=== PATIENT | male | born 1940 | race Caucasian/White ===

== ENCOUNTER 2017-03-03 23:09 | Observation (INO) | payer MEDICARE ==
[2017-03-03] MEDS ORDERED: ASPIRIN 81 MG CHEWABLE TABLET PO ONE (23:16)
[2017-03-03 23:23] LABS: BASO % 0.5 % (0-6); EOS % 3.1 % (0-6); GRAN % 67.2 % (47-80); HEMATOCRIT 42.6 % (42.0-52.0); HEMOGLOBIN 14.4 gm/dl (14.0-18.0); LYMPH % 20.7 % (16-45); MEAN CELL VOLUME 87.3 fl (81-97); MEAN CORPUSCULAR HEMOGLOBIN 29.5 pg (27-33); MEAN CORPUSCULAR HGB CONC 33.8 g/dl (32-36); MEAN PLATELET VOLUME 9.4 fl (7.4-10.4); MONO % 8.5 % (0-9); PLATELET COUNT 229 K/uL (130-400); RED BLOOD COUNT 4.88 M/uL (4.40-5.70); RED CELL DISTRIBUTION WIDTH 12.9 % (11.5-14.5); WHITE BLOOD COUNT W/O DIFF 8.8 K/uL (4.2-12.2)
--- NOTE | 2017-03-03 23:23 | Emergency Department Record ---
History of Present Illness - General Chief Complaint: Chest Pain Stated Complaint: CHEST PAIN Source: Patient Mode of Arrival: Ambulatory Limitations: No limitations - History of Present Illness Initial Comments: 76 yo male presents to ED with a CC of intermittent chest pain symptoms throughout the day. Patient describes his pain symptoms as an "ache" that radiates down the left arm lasting for about 1-2 minutes. Patient denies previous history of chest pain or heart disease, reports history of HTN and asthma. Patient denies fevers, chills, cough, or lower extremity swelling/pain symptoms. Patient denies difficulty in breathing. Patient does report a history of "2 vertebrae in my mid-back that are bad, I think my symptoms may be from my back". MD Complaint: Chest pain Onset/Timin -: Days(s) Pain Location: Substernal Pain Radiation: LUE Severity: Moderate Quality: Aching Consistency: Intermittent Improves With: Nothing Worsens With: Nothing Treatments Prior to Arrival: None - Related Data Home Medications Medication Instructions Recorded Confirmed Last Taken Fluticasone/Salmeterol [Advair 1 puff INH BID 03/04/17 03/04/17 Unknown 250-50 Diskus] Allergies Allergy/AdvReac Type Severity Reaction Status Date / Time "Most blood pressure AdvReac Hypertensio Uncoded 03/03/17 23:17 medications" n Review of Systems Constitutional: Denies: Chills, Fever, Malaise, Night sweats Eyes: Denies: Eye discharge, Eye pain ENT: Denies: Congestion, Ear pain, Epistaxis Respiratory: Denies: Cough, Dyspnea Cardiovascular: Reports: Chest pain. Denies: Dyspnea on exertion Endocrine: Denies: Fatigue, Heat or cold intolerance Gastrointestinal: Denies: Abdominal pain, Nausea, Vomiting Genitourinary: Denies: Incontinence, Retention Musculoskeletal: Reports: Back pain. Denies: Arthralgia, Gout, Joint swelling Skin: Denies: Bruising, Change in color Neurological: Denies: Abnormal gait, Confusion, Headache, Seizure Psychiatric: Denies: Anxiety Hematological/Lymphatic: Denies: Anemia, Blood Clots Physical Exam - General General Appearance: Alert, Oriented x3, Cooperative, Mild distress Limitations: No limitations - Head Head exam: Atraumatic, Normocephalic, Normal inspection Head exam detail: negative: Abrasion, Contusion, Singh's sign, General tenderness, Hematoma, Laceration - Eye Eye exam: Normal appearance. negative: Conjunctival injection, Periorbital swelling, Periorbital tenderness, Scleral icterus - ENT Ear exam: negative: Auricular hematoma, Auricular trauma Nasal Exam: negative: Active bleeding, Discharge, Dried blood, Foreign body Mouth exam: negative: Drooling, Laceration, Muffled voice, Tongue elevation - Neck Neck exam: Normal inspection. negative: Meningismus, Tenderness - Respiratory Respiratory exam: Normal lung sounds bilaterally. negative: Rales, Respiratory distress, Rhonchi, Stridor - Cardiovascular Cardiovascular Exam: Regular rate, Normal rhythm, Normal heart sounds - GI/Abdominal GI/Abdominal exam: Soft. negative: Rebound, Rigid, Tenderness - Rectal Rectal exam: Deferred - exam: Deferred - Extremities Extremities exam: Normal inspection. negative: Calf tenderness, Pedal edema, Tenderness - Back Back exam: Denies: CVA tenderness (R), CVA tenderness (L) - Neurological Neurological exam: Alert, Normal gait, Oriented X3 - Psychiatric Psychiatric exam: Anxious - Skin Skin exam: Normal color. negative: Abrasion Type of lesion: negative: abrasion Course - Reevaluation(s) Reevaluation #1: 03/03/17 23:21 EKG: NSR 97 Normal axis, IVCD No acute ST-T wave changes are present. Reevaluation #2: 03/04/17 00:12 Labs reviewed and are grossly unremarkable for an acute process. CXR: No acute process. Patient was updated on all results, reports that he continues to be pain-free. Will admit for cardiac evaluation at this time. Reevaluation #3: 03/04/17 06:59 Case was discussed with Lisa Marinelli, will accept admission at this time. Medical Decision Making - Lab Data Result diagrams: 03/03/17 23:17 03/03/17 23:17 Disposition Disposition: Admit Clinical Impression: Chest pain Qualifiers: Chest pain type: unspecified Qualified Code(s): R07.9 - Chest pain, unspecified Disposition: Still a Patient at [facility] Decision to Admit: Admit from ER Decision to Admit Date: 03/04/17 Decision to Admit Time: 00:13 Condition: (2) Stable Time of Disposition: 00:13 Quality - Quality Measures Quality Measures: N/A - Blood Pressure Screening View Details: Yes Does Patient Have Any of the Following: Active Dx of HTN Blood Pressure Classification: Hypertensive Reading Systolic Measurement: 199 Diastolic Measurement: 110 Screening for High Blood Pressure: Patient Exclusion, Hx of HTN [G9744]
[2017-03-03 23:34] LABS: ALB/GLOB RATIO 1.4 (1.1-1.8); ALBUMIN 4.3 gm/dL (3.5-5.0); ALKALINE PHOSPHATASE 115 U/L (38-126); ALT/SGPT 64 U/L (21-72); ANION GAP 9.6 (7-16); AST/SGOT 35 U/L (17-59); BILIRUBIN,TOTAL 0.44 mg/dL (0.2-1.3); BLOOD UREA NITROGEN 20 mg/dL (9-20); CARBON DIOXIDE 26.4 mmol/L (22-30); CREATINE PHOSPHOKINASE 553 U/L (55-170); CREATININE 1.1 mg/dL (0.66-1.25); EST GLOMERULAR FILTRATION RATE > 60 ml/min; GLUCOSE,RANDOM 159 mg/dL (70-110); TOTAL PROTEIN 7.3 gm/dL (6.3-8.2)
[2017-03-03 23:46] LABS: CKMB 5.6 ug/L (0-6); TROPONIN I 0.013 ng/mL (0.00-0.034)
[2017-03-04] MEDS ORDERED: NITROGLYCERIN 0.4MG SL TABLET #25 BTL SL PRN (00:56)
[2017-03-04] MEDS ORDERED: ALBUTEROL INH PRN (09:11)
[2017-03-04] MEDS ORDERED: ASPIRIN 325 MG TAB ENTERIC-COATED PO SCH (10:00)
[2017-03-04] MEDS ORDERED: TRIAMTERENE 37.5/HCTZ 25 CAPSULE PO SCH (10:00)
[2017-03-04] MEDS ORDERED: PATIENT OWN MED: ADVAIR 250/50 INH SCH (10:10)
--- NOTE | 2017-03-04 10:12 | History & Physical ---
History of Present Illness - Date of Service Date of Service for History & Physical: 03/04/17 - History of Present Illness Admitting Diagnosis: Chest pain. HTN History of Present Illness: Mr. Mclaughlin is a 76 y/o male who presents with acute onset, sharp left sided chest pain which began yesterday evening around 9pm. The patient says the pain is intermittent, lasting about 1 minute, 5/10 in severity and non-radiating. He has no previous cardiac complaint but does admit to severe anxiety for which he takes Ativan PRN. On arrival to the ED the patient's ECG and cardiac labs were not suggestive of any acute coronary syndromes. The patient was admitted for observation on telemetry. Travel Screening - Travel/Exposure Within Last 30 Days Have you traveled within the last 30 days?: No - Travel/Exposure Within Last Year Have you traveled outside the [place] in the last year?: No - Additonal Travel Details Have you been exposed to anyone with a communicable illness?: No - Travel Symptoms Symptom Screening: None Review of Systems Constitutional: Denies: Chills, Fever, Malaise, Night sweats Eyes: Denies: Eye discharge, Eye pain ENT: Denies: Congestion, Ear pain, Epistaxis Respiratory: Denies: Cough, Dyspnea Cardiovascular: Reports: Chest pain (intermittent sharp, point tenderness). Denies: Dyspnea on exertion Endocrine: Denies: Fatigue, Heat or cold intolerance Gastrointestinal: Denies: Abdominal pain, Nausea, Vomiting Genitourinary: Denies: Incontinence, Retention Musculoskeletal: Reports: Back pain. Denies: Arthralgia, Gout, Joint swelling Skin: Denies: Bruising, Change in color Neurological: Denies: Abnormal gait, Confusion, Headache, Seizure Psychiatric: Denies: Anxiety Hematological/Lymphatic: Denies: Anemia, Blood Clots Past Medical History - SOCIAL HISTORY Smoking Status: Never smoker Alcohol Use: Rare Drug Use: None - RESPIRATORY Hx Respiratory Disorders: Yes Hx Asthma: Yes - CARDIOVASCULAR Hx Cardio Disorders: Yes Hx Abnormal EKG: No Hx Hypertension: Yes - NEURO Hx Neuro Disorders: No - GI Hx GI Disorders: No - Hx Genitourinary Disorders: No - ENDOCRINE Hx Endocrine Disorders: No - MUSCULOSKELETAL Hx Musculoskeletal Disorders: No - PSYCH Hx Psych Problems: Yes Hx Anxiety: Yes - HEMATOLOGY/ONCOLOGY Hx Hematology/Oncology Disorders: No Family Medical History Any Significant Family History?: Yes Hx Diabetes: Mother Hx Heart Disease: Father Hx HTN: Father H&P Meds/Allergies - Allergies Allergies: Allergies Allergy/AdvReac Type Severity Reaction Status Date / Time "Most blood pressure AdvReac Hypertensio Uncoded 03/03/17 23:17 medications" n - Home Medications Home Medications Medication Instructions Recorded Confirmed Last Taken Fluticasone/Salmeterol [Advair 1 puff INH BID 03/04/17 03/04/17 Unknown 250-50 Diskus] Lorazepam [Ativan] 0.5 mg PO DAILY PRN 03/04/17 03/04/17 Unknown - Active Medications Active Medications: Current Medications Aspirin (Ecotrin (Ec)) 325 mg PO DAILY [facility] Last Admin: 03/04/17 09:14 Dose: 325 mg Nitroglycerin (Nitrostat 0.4mg) 0.4 mg SL Q5MIN PRN PRN Reason: CHEST PAIN Patient Own Med: (Advair 250/50) 1 each INH BID [facility] Patient Own Med: (Albuterol Inhaler) 2 each INH Q4H PRN PRN Reason: WHEEZING Triamterene/HCTZ (Dyazide) 1 udcap PO DAILY [facility] Last Admin: 03/04/17 09:14 Dose: 1 udcap Physical Exam - Vital Signs Vital Signs: Vital Signs - Last 24 Hrs Temp Pulse Resp BP Pulse Ox 03/04/17 01:06 98.2 F 81 20 150/99 95 - General General Appearance: Alert, Oriented x3, Cooperative, Mild distress Limitations: No limitations - Head Head exam: Atraumatic, Normocephalic, Normal inspection Head exam detail: negative: Abrasion, Contusion, Singh's sign, General tenderness, Hematoma, Laceration - Eye Eye exam: Normal appearance. negative: Conjunctival injection, Periorbital swelling, Periorbital tenderness, Scleral icterus - ENT Ear exam: negative: Auricular hematoma, Auricular trauma Nasal Exam: negative: Active bleeding, Discharge, Dried blood, Foreign body Mouth exam: negative: Drooling, Laceration, Muffled voice, Tongue elevation - Neck Neck exam: Normal inspection. negative: Meningismus, Tenderness - Respiratory Respiratory exam: Normal lung sounds bilaterally. negative: Rales, Respiratory distress, Rhonchi, Stridor - Cardiovascular Cardiovascular Exam: Regular rate, Normal rhythm, Normal heart sounds - GI/Abdominal GI/Abdominal exam: Soft. negative: Rebound, Rigid, Tenderness - Rectal Rectal exam: Deferred - exam: Deferred - Extremities Extremities exam: Normal inspection. negative: Calf tenderness, Pedal edema, Tenderness - Back Back exam: Denies: CVA tenderness (R), CVA tenderness (L) - Neurological Neurological exam: Alert, Normal gait, Oriented X3 - Psychiatric Psychiatric exam: Anxious - Skin Skin exam: Normal color. negative: Abrasion Type of lesion: negative: abrasion Results - Labs Result Diagrams: 03/03/17 23:17 03/03/17 23:17 Labs Last 24 Hours: Laboratory Results - last 24 hr 03/04/17 07:08 Troponin I 0.025 VTE H&P Assessment - Risk for VTE Risk for VTE: No Risk Level: Very Low Risk Assessment Date: 03/04/17 Risk Assessment Time: 10:00 VTE Orders Placed or Will Be Placed: Yes Plan - Detailed Diagnosis and Plan (1) Atypical chest pain Plan: - patient presents with intermittent chest pain which has now resolved. Symptoms likely induced by anxiety. - ECG negative for any acute changes, troponins negative x 2, telemetry monitoring - nitro 0.4mg, ASA administered in the ED, ordered Ativan 0.5mg - Cardiology evaluated and not further indication for workup. Status: Acute Base Code: R07.89 - OTHER CHEST PAIN (2) HTN (hypertension) Plan: - currently controlled on home dsoing of HCTZ/Triameterne. Status: Acute Base Code: I10 - ESSENTIAL (PRIMARY) HYPERTENSION (3) Anxiety Plan: - patient has hx of anxiety and takes Ativan at home but is unsure of the dose. - ordered PRN Ativan 0.5mg. Status: Acute Base Code: F41.9 - ANXIETY DISORDER, UNSPECIFIED (4) Full code status Status: Acute Base Code: Z78.9 - OTHER SPECIFIED HEALTH STATUS - Disposition Will likely be d/c this afternoon pending Cardiology input. Patient to follow up with PCP within one week at discharge.
[2017-03-04] MEDS ORDERED: LORAZEPAM 0.5 MG TABLET PO ONE (11:38)
--- NOTE | 2017-03-04 16:42 | RADIOLOGY REPORT ---
EXAM: CHEST AP or PA ONLY HISTORY: CHEST PAIN. TECHNIQUE: A single mobile upright view of the chest is obtained. COMPARISON: Two-view chest radiographic examination dated 09/19/2012. FINDINGS: The heart remains normal in size and the pulmonary vasculature is nondilated. The lung volumes are low. There is scalloping of the right hemidiaphragm, not significantly changed. No new lung consolidation, costophrenic angle blunting, or pneumothorax is seen. Degenerative endplate spurring is scattered within the visualized spine. IMPRESSION: LOW LUNG VOLUMES. NO CONVINCING EVIDENCE OF ACUTE CARDIOPULMONARY DISEASE. JOB NUMBER: [id number] MTDD
--- NOTE | 2017-03-04 20:36 | Discharge Summary ---
Providers Discharge Summary Date: 03/04/17 Date of admission: 03/04/17 00:39 Attending physician: BULMARO MOLINA Primary care physician: Lavonne Vieira Consults: Consult Orders 03/04/17 06:45 Consult - Cardiology NOW Consulting Provider: NIKOLAI SAHU Physician Instructions: Reason For Exam: chest pain Does pt have current elementary reading specialist?: Unknown Physical Exam - Vital Signs Vital Signs: Vital Signs - Last 24 Hrs Temp Pulse Resp BP Pulse Ox 03/04/17 11:00 98.7 F 93 H 20 145/89 96 03/04/17 09:00 20 03/04/17 01:06 98.2 F 81 20 150/99 95 - General General Appearance: Alert, Oriented x3, Cooperative, Mild distress Limitations: No limitations - Head Head exam: Atraumatic, Normocephalic, Normal inspection Head exam detail: negative: Abrasion, Contusion, Singh's sign, General tenderness, Hematoma, Laceration - Eye Eye exam: Normal appearance. negative: Conjunctival injection, Periorbital swelling, Periorbital tenderness, Scleral icterus - ENT Ear exam: negative: Auricular hematoma, Auricular trauma Nasal Exam: negative: Active bleeding, Discharge, Dried blood, Foreign body Mouth exam: negative: Drooling, Laceration, Muffled voice, Tongue elevation - Neck Neck exam: Normal inspection. negative: Meningismus, Tenderness - Respiratory Respiratory exam: Normal lung sounds bilaterally. negative: Rales, Respiratory distress, Rhonchi, Stridor - Cardiovascular Cardiovascular Exam: Regular rate, Normal rhythm, Normal heart sounds - GI/Abdominal GI/Abdominal exam: Soft. negative: Rebound, Rigid, Tenderness - Rectal Rectal exam: Deferred - exam: Deferred - Extremities Extremities exam: Normal inspection. negative: Calf tenderness, Pedal edema, Tenderness - Back Back exam: Denies: CVA tenderness (R), CVA tenderness (L) - Neurological Neurological exam: Alert, Normal gait, Oriented X3 - Psychiatric Psychiatric exam: Anxious - Skin Skin exam: Normal color. negative: Abrasion Type of lesion: negative: abrasion Hospitalization - Hospitalization Admission Diagnosis: Chest pain. HTN - Problem List/Discharge Diagnosis (1) Atypical chest pain Status: Acute Base Code: R07.89 - OTHER CHEST PAIN Diagnosis Priority: Primary (2) HTN (hypertension) Status: Chronic Base Code: I10 - ESSENTIAL (PRIMARY) HYPERTENSION Diagnosis Priority: Secondary (3) Anxiety Status: Acute Base Code: F41.9 - ANXIETY DISORDER, UNSPECIFIED Diagnosis Priority: Secondary (4) Full code status Status: Acute Base Code: Z78.9 - OTHER SPECIFIED HEALTH STATUS Diagnosis Priority: Other - Disposition Will likely be d/c this afternoon pending Cardiology input. Patient to follow up with PCP within one week at discharge. - Hospitalization Course Disposition: Home, Self-Care Hospital Course: Mr. Mclaughlin is 76 y/o male who presents with intermittent chest pain starting last night. The patient presented to the ED with acute intermittent chest pain. HE was adminstered Nitro 0.4mg, ECG and troponins were negative for acute coronary syndrome. The patient was started on telemetry and throughout his hospital stay there was no indication of arrythmia and trended labs remained negative. Cardiology evaluated the patient and saw no need for further cardiac evaluation. The patient exhibited extreme anxiety during his stay and was responsive to Ativan 0.5 mg. He had no other complaints during his stay and symptoms resolved. Condition at Discharge: (2) Stable Discharge Diagnosis: Atypical chest pain VTE Discharge VTE Reason For No Overlap Therapy: Not Indicated AMI Discharge Plan AMI Reason For No ASA at DC: Not Indicated AMI Reason For No Statin at DC: Not Indicated Discharge Medications - Discharge Medications Home Medications: Ambulatory Orders Albuterol Sulfate [Proair Hfa] 1 - 2 puff INH Q4HR PRN #25 07/10/16 [Last Taken Unknown] Triamterene/Hydrochlorothiazid [Triamterene-Hctz 37.5-25 Mg Cp] 1 tab PO DAILY # 90 07/10/16 [Last Taken Unknown] Fluticasone/Salmeterol [Advair 250-50 Diskus] 1 puff INH BID 03/04/17 [Last Taken Unknown] Lorazepam [Ativan] 0.5 mg PO DAILY PRN 03/04/17 [Last Taken Unknown] Discharge Plan - Discharge Instructions Activity at Discharge: Resume Usual Activities As Tolerated Instructions: Chest Pain (DC) Additional Instructions: Follow up with with Dr. Vieira in one week. Quality Measures - Quality Measures Quality Measures: Advance Directives, Documentation of Current Medications in Medical Record, Elder Maltreatment Screen and Follow-Up Plan, Screening for High Blood Pressure and F/U Documented - Current Medications Quality Measure: Measure #130: Documentation of Current Medications Documentation of Current Medications: <Current Medications Documented/Reviewed> [G6358] - Blood Pressure Screening Quality Measure: Screening for High Blood Pressure and Follow-Up Documented Does Patient Have Any of the Following: Active Dx of HTN Blood Pressure Classification: Hypertensive Reading Systolic Measurement: 199 Diastolic Measurement: 110 Screening for High Blood Pressure: Patient Exclusion, Hx of HTN [G9744] - Advance Directives Quality Measure: Measure #47: Care Plan Advance Directives Established: No Advance Directives Information Provided To Patient: No Advance Directives on File: No Living Will: Yes Power of Receiving Distribution Station Operator: Yes Power of Receiving Distribution Station Operator Name: Ayala Mclaughlin Advance Care Planning: <Care Plan/Decision Maker Documented; Discussed & Documented> [1123F] - Elder Abuse Suspicion Index Screening: Elder Abuse Suspicion Index Screening Screening Result: Negative result EASI Reference Information: Jenny TAMAYO, Kevin C, Didier D, Jennie Olsen.Development and validation of a tool to assist physicians identification of elder abuse: The Elder Abuse Suspicion Index (EASI ). Journal of Elder Abuse and Neglect, 2008; 20 (3): 276-300. - Elder Maltreatment Screen Quality Measures: Elder Maltreatment Screen and Follow-Up Plan Elder Maltreatment Screen: <Negative, No Follow-Up Plan Required> [G8734]
--- NOTE | 2017-03-04 20:57 | Medical Records Consult ---
DATE OF CONSULT: 03/04/17 Azam Mclaughlin is a 76-year-old male that states that he suffers from anxiety. He is very concerned about his heart. He did complain of intermittent sharp, jabbing chest discomfort that occurred throughout the day. The pain was not typical of angina, had none of the typical features of a visceral sensation that lasted for 15 or 20 minutes, initiated with postings and increased cardiac output. The patient since being in the hospital has had none of this chest discomfort. His resting electrocardiogram was completely normal. His initial troponin was also normal at 0.025. Serum electrolytes reveal some mild low serum potassium at 3.6. FURTHER HISTORY: Further history was done by the Primary Service. These were carefully reviewed and confirmed with the patient as well as the . No additions are necessary. PHYSICAL EXAMINATION: GENERAL: Reveals an elderly apprehensive male who was resting comfortably in bed at the time of this evaluation. LUNGS: His lungs were clear to auscultation in all listening posts. CARDIAC EXAM: The heart sounds are clear. First and second sounds are normal. No S3. No S4. I did not hear any murmurs. ABDOMEN: His abdomen was soft without masses. Good peripheral pulses. No evidence of peripheral edema. IMPRESSION: THE PATIENTS CHEST DISCOMFORT IS ATYPICAL FOR CORONARY DISEASE. RESTING ELECTROCARDIOGRAM AND TROPONIN AT THIS POINT ARE NORMAL. I DID NOT FEEL TREADMILL EXERCISE TESTING WOULD ADD ANYTHING TO THE CASE. IF ALL TROPONINS ARE NORMAL EXPECTED, THE PATIENT CAN BE DISCHARGED AND FOLLOWED-UP BY HIS PRIMARY CARE PHYSICIAN. JOB NUMBER: [id number] MTDD
== END 2017-03-04 16:30 | disposition home or self-care (01) ==
LOC: ER 23:09 → MEDSURG 03-04 00:39
PROVIDERS: ADMIT Family Medicine; ATTEND Family Medicine
DX: R07.89 Other chest pain (principal); I10 Essential (primary) hypertension; F41.9 Anxiety disorder, unspecified; Z78.9 Other specified health status
CPT/HCPCS: 93041; 99285 ×2; 82550; 85025; 82553; 84484 ×2; 80053; 71010; 93005 ×2; 93010 ×2; G0378; 99235

== ENCOUNTER 2017-12-26 15:30 | Emergency (ER) | payer MEDICARE ==
[2017-12-26] MEDS ORDERED: AMPICILLIN SODIUM/SULBACTAM NA 3 G in 0.9 % SODIUM CHLORIDE 100ML 100 ML IVPB ONE (15:50)
[2017-12-26] MEDS ORDERED: Diph,Pert(Acell),Tet Vac 0.5 ML SYR IM ONE (15:51)
--- NOTE | 2017-12-26 15:51 | Emergency Department Record ---
History of Present Illness - General Chief Complaint: Animal Bite Stated Complaint: CAT BITE ON LEFT WRIST Time Seen by Provider: 12/26/17 15:45 Source: Patient, Family Mode of Arrival: Ambulatory Limitations: No limitations - History of Present Illness Initial Comments: 77 yo male presents after a cat bite yesterday to the left wrist. The bite occurred at 8am yesterday. The redness started today. No fevers, chills, pain , pain with motion. His last tetanus shot was in 2011. He has not limitation of wrist or finger movement. Movement of the wrist and fingers do not cause pain. The cat is his cat. It is a healthy animal. Complaint: Animal bite Onset/Timin -: Days(s) Location - General: Other Left: Forearm Animal: Cat Description: Household pet Mechanism: Bite Context: Other Associated Symptoms: None, Fever Treatments Prior to Arrival: Other (clean it yesterday) - Related Data Home Medications Medication Instructions Recorded Confirmed Last Taken Aspirin 325 mg PO DAILY 12/26/17 12/26/17 12/26/17 Previous Rx's Medication Instructions Recorded Amoxicillin/Potassium Clav 1 tab PO BID #20 tab 12/26/17 [Augmentin 875-125 Tablet] Allergies Allergy/AdvReac Type Severity Reaction Status Date / Time "Most blood pressure AdvReac Hypertensio Uncoded 03/03/17 23:17 medications" n Travel Screening - Travel/Exposure Within Last 30 Days Have you traveled within the last 30 days?: No - Travel/Exposure Within Last Year Have you traveled outside the [place] in the last year?: No - Additonal Travel Details Have you been exposed to anyone with a communicable illness?: No - Travel Symptoms Symptom Screening: None Review of Systems Constitutional: Denies: Chills, Fever, Malaise, Weakness Eyes: Denies: Eye discharge ENT: Denies: Congestion, Throat pain Respiratory: Denies: Cough Cardiovascular: Denies: Chest pain, Syncope Endocrine: Denies: Fatigue Gastrointestinal: Denies: Abdominal pain, Diarrhea, Nausea, Vomiting Genitourinary: Denies: Dysuria Musculoskeletal: Denies: Arthralgia, Myalgia Skin: Reports: As per HPI, Change in color Neurological: Denies: Numbness, Tingling, Vertigo, Weakness Psychiatric: Denies: Anxiety Hematological/Lymphatic: Denies: Blood Clots, Easy bleeding, Easy bruising Past Medical History - SOCIAL HISTORY Smoking Status: Never smoker Alcohol Use: Occasional Drug Use: None - RESPIRATORY Hx Respiratory Disorders: Yes Hx Asthma: Yes - CARDIOVASCULAR Hx Cardio Disorders: Yes Hx Abnormal EKG: No Hx Hypertension: Yes - NEURO Hx Neuro Disorders: No - GI Hx GI Disorders: No - Hx Genitourinary Disorders: No - ENDOCRINE Hx Endocrine Disorders: No - MUSCULOSKELETAL Hx Musculoskeletal Disorders: No - PSYCH Hx Psych Problems: Yes Hx Anxiety: Yes - HEMATOLOGY/ONCOLOGY Hx Hematology/Oncology Disorders: No Family Medical History Any Significant Family History?: Yes Hx Diabetes: Mother Hx Heart Disease: Father Hx HTN: Father Hx Stroke: Mother *Stroke Comment: from stroke Physical Exam - General General Appearance: Alert, Oriented x3, Cooperative, No acute distress Limitations: No limitations - Head Head exam: Atraumatic, Normal inspection - Eye Eye exam: Normal appearance. negative: Conjunctival injection - ENT ENT exam: Normal exam, Mucous membranes moist Ear exam: Normal external inspection Nasal Exam: Normal inspection - Neck Neck exam: Normal inspection - Cardiovascular Peripheral Pulses: 2+: Radial (L) - Extremities Extremities exam: Full ROM, Normal capillary refill. negative: Normal inspection, Tenderness Image of Full Body: 1 - site of bite, no pus or fluctuance, 4 puncture sites from yesterday 2 - erythema. full ROM of the wrist, fingers. NO pain on palpation or with the ROM. No signs of deep infection of tendon involvement - Neurological Neurological exam: Alert, Oriented X3 - Psychiatric Psychiatric exam: Normal affect, Normal mood - Skin Skin exam: Dry, Intact, Normal color, Warm Course Vital Signs 12/26/17 15:38 Temperature 99.1 F Pulse Rate 89 Respiratory 20 Rate Blood Pressure 163/97 Pulse Ox 95 - Reevaluation(s) Reevaluation #1: The tetanus will be updated today His findings are mild at this time No signs of deep inflection, tenosynovitis, abscess. No pain or pain with ROM IV Unasyn ordered 12/26/17 15:54 12/26/17 16:28 The XR was reviewed No acute process. Degenerative changes 12/26/17 16:30 The area was marked for further monitoring We discussed at length the importance of returning if worse He will recheck in the ED if not better in 2 days otherwise but sooner if worse 12/26/17 17:13 Disposition Disposition: Discharge Clinical Impression: Cat bite Qualifiers: Encounter type: initial encounter Qualified Code(s): W55.01XA - Bitten by cat, initial encounter Cellulitis Qualifiers: Site of cellulitis: extremity Site of cellulitis of extremity: upper extremity Laterality: left Qualified Code(s): L03.114 - Cellulitis of left upper limb Disposition: Home, Self-Care Condition: (1) Good Instructions: Animal Bite (ED), Cellulitis (ED) Additional Instructions: Return to the ER if the area of redness expands beyond the marked area Return to the ER immediately if you have fever, chills, shakes or any new concerns Take the Augmentin twice daily as directed Recheck in the ER in 48 if no improvement. Prescriptions: Amoxicillin/Potassium Clav [Augmentin 875-125 Tablet] 1 tab PO BID #20 tab Forms: Patient Portal Access Time of Disposition: 16:05 Quality - Quality Measures Quality Measures: N/A - Blood Pressure Screening Does Patient Have Any of the Following: Active Dx of HTN Blood Pressure Classification: Hypertensive Reading Systolic Measurement: 163 Diastolic Measurement: 97 Screening for High Blood Pressure: Patient Exclusion, Hx of HTN [G9744]
[2017-12-26] MEDS ORDERED: AMOXICILLIN/POTASSIUM CLAV 875MG/125MG TABLET PO ONE (17:13)
--- NOTE | 2017-12-28 19:22 | RADIOLOGY REPORT ---
EXAM: WRIST, LEFT 3 VIEWS HISTORY: REDNESS AND SWELLING FROM CAT BITE YESTERDAY. TECHNIQUE: Three views left wrist. COMPARISON: None. ENCOUNTER: Initial. FINDINGS: There is advanced degenerative arthritis at the first CMC articulation with some deformity of the greater multangular, which appears chronic in nature and may be due to old injury. There is degenerative arthritis at the radiocarpal and ulnocarpal joints as well. Soft tissue swelling fairly diffusely about the wrist. Some vascular calcification is present. No definite acute fracture or dislocation evident. No obvious foreign body seen, although some foreign bodies will be radiographically indistinguishable from the soft tissues. IMPRESSION: 1. 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 2. DIFFUSE SOFT TISSUE SWELLING. 3. SOME VASCULAR CALCIFICATION. JOB NUMBER: [id number] [facility]
== END 2017-12-26 17:59 | disposition home or self-care (01) ==
LOC: ER 15:30
DX: S61.532A Puncture wound without foreign body of left wrist, initial encounter (principal); L03.114 Cellulitis of left upper limb; W55.01XA Bitten by cat, initial encounter; Y92.009 Unspecified place in unspecified non-institutional (private) residence as the place of occurrence of the external cause; I10 Essential (primary) hypertension
CPT/HCPCS: 99284 ×2; 96372; 96365; 73110; J0295; 90715

== ENCOUNTER 2017-12-28 20:19 | Emergency (ER) | payer MEDICARE ==
[2017-12-28] MEDS ORDERED: AMPICILLIN SODIUM/SULBACTAM NA 3 G in 0.9 % SODIUM CHLORIDE 100ML 100 ML IVPB ONE (20:39)
--- NOTE | 2017-12-28 20:45 | Emergency Department Record ---
History of Present Illness - General Chief Complaint: Wound, check Stated Complaint: RECHECK Time Seen by Provider: 12/28/17 20:21 Source: Patient Mode of arrival: Ambulatory Limitations: No limitations - History of Present Illness Initial Comments: 77 yo male returns to ED for re-evaluation following a cat bite to the left wrist 2 days ago. Patient report that he has been taking Augmentin as directed and his symptoms have overall improved. Patient reports less pain symptoms and fading of the redness to the forearm, however came to ED as the redness has expanded slightly beyond the previously demarcated area of the forearm/elbow. Patient denies fevers, chills, nausea, or recent illness symptoms. MD Complaint: Wound re-check Onset/Timin -: Days(s) Initial Visit For: Animal bite Returns Today for: Wound recheck Symptoms Since Prior Visit: Worsening redness Associated Symptoms: None - Related Data Previous Rx's Medication Instructions Recorded Amoxicillin/Potassium Clav 1 tab PO BID #20 tab 12/26/17 [Augmentin 875-125 Tablet] Allergies Allergy/AdvReac Type Severity Reaction Status Date / Time "Most blood pressure AdvReac Hypertensio Uncoded 03/03/17 23:17 medications" n Travel Screening - Travel/Exposure Within Last 30 Days Have you traveled within the last 30 days?: No - Travel Symptoms Symptom Screening: None Review of Systems Constitutional: Denies: Chills, Fever, Malaise, Night sweats Eyes: Denies: Eye discharge, Eye pain ENT: Denies: Congestion, Ear pain, Epistaxis Respiratory: Denies: Cough, Dyspnea Cardiovascular: Denies: Chest pain, Dyspnea on exertion Endocrine: Denies: Fatigue, Heat or cold intolerance Gastrointestinal: Denies: Abdominal pain, Nausea, Vomiting Genitourinary: Denies: Incontinence, Retention Musculoskeletal: Denies: Arthralgia, Back pain Skin: Reports: Change in color. Denies: Bruising, Lesions Neurological: Denies: Abnormal gait, Confusion, Headache, Seizure Psychiatric: Denies: Anxiety Hematological/Lymphatic: Denies: Anemia, Blood Clots Past Medical History - SOCIAL HISTORY Smoking Status: Never smoker - RESPIRATORY Hx Respiratory Disorders: Yes Hx Asthma: Yes - CARDIOVASCULAR Hx Cardio Disorders: Yes Hx Abnormal EKG: No Hx Hypertension: Yes - NEURO Hx Neuro Disorders: No - GI Hx GI Disorders: No - Hx Genitourinary Disorders: No - ENDOCRINE Hx Endocrine Disorders: No - MUSCULOSKELETAL Hx Musculoskeletal Disorders: No - PSYCH Hx Psych Problems: Yes Hx Anxiety: Yes - HEMATOLOGY/ONCOLOGY Hx Hematology/Oncology Disorders: No Family Medical History Any Significant Family History?: Yes Hx Diabetes: Mother Hx Heart Disease: Father Hx HTN: Father Hx Stroke: Mother *Stroke Comment: from stroke Physical Exam - General General Appearance: Alert, Oriented x3, Cooperative Limitations: No limitations - Head Head exam: Atraumatic, Normocephalic, Normal inspection Head exam detail: negative: Abrasion, Contusion, Singh's sign, General tenderness, Hematoma, Laceration - Eye Eye exam: Normal appearance. negative: Conjunctival injection, Periorbital swelling, Periorbital tenderness, Scleral icterus - ENT Ear exam: negative: Auricular hematoma, Auricular trauma Nasal Exam: negative: Active bleeding, Discharge, Dried blood, Foreign body Mouth exam: negative: Drooling, Laceration, Muffled voice, Tongue elevation Teeth exam: Dental caries - Neck Neck exam: Normal inspection. negative: Meningismus, Tenderness - Respiratory Respiratory exam: Normal lung sounds bilaterally. negative: Rales, Respiratory distress, Rhonchi - Cardiovascular Cardiovascular Exam: Regular rate, Normal rhythm, Normal heart sounds - GI/Abdominal GI/Abdominal exam: Soft. negative: Rebound, Rigid, Tenderness - Rectal Rectal exam: Deferred - exam: Deferred - Extremities Extremities exam: Tenderness, Other (Mild STS to the volar aspect of the left forearm, scabbed lesions to the left wrist c/w healing bite wounds. Mild erythema and warmth to palpation is present, mild erythema beyond the previously demarcated region of the elbow proximally.). negative: Calf tenderness, Pedal edema - Back Back exam: Denies: CVA tenderness (R), CVA tenderness (L) - Neurological Neurological exam: Alert, Normal gait, Oriented X3 - Psychiatric Psychiatric exam: Normal affect, Normal mood - Skin Skin exam: Erythema. negative: Abrasion Distribution of rash: LUE Description of rash: Confluent, Erythematous Course Vital Signs 12/28/17 20:26 Temperature 98.3 F Pulse Rate 114 H Respiratory 18 Rate Blood Pressure 160/86 Pulse Ox 95 - Reevaluation(s) Reevaluation #1: 12/28/17 21:37 Laboratory studies were reviewed, Glucose 252, CRP 7.7, ESR 73. Labs are otherwise grossly unremarkable for an acute process. Patient was updated on all results, appears stable for discharge with return in 12-24 hours for reassessment of his forearm infection, if worse on return visit , will plan on admission. Patient and his verbalize understanding of all instructions, and the patient appears stable for discharge at this time. Medical Decision Making - Lab Data Result diagrams: 12/28/17 20:50 12/28/17 20:50 Disposition Disposition: Discharge Clinical Impression: Cat bite Qualifiers: Encounter type: subsequent encounter Qualified Code(s): W55.01XD - Bitten by cat, subsequent encounter Cellulitis Qualifiers: Site of cellulitis: extremity Site of cellulitis of extremity: upper extremity Laterality: left Qualified Code(s): L03.114 - Cellulitis of left upper limb Disposition: Home, Self-Care Condition: (2) Stable Instructions: Animal Bite (ED) Additional Instructions: Return to ED in 12-24 hours for reassessment of your forearm infection. Continue Augmentin as directed. Follow-up with your family doctor in 1-3 days as directed. Forms: Patient Portal Access Time of Disposition: 21:46 Quality - Quality Measures Quality Measures: N/A - Blood Pressure Screening Does Patient Have Any of the Following: No Blood Pressure Classification: Pre-Hypertensive BP Reading Systolic Measurement: 135 Diastolic Measurement: 74 Screening for High Blood Pressure: < Pre-Hypertensive BP, F/U Documented > [ G8950] Pre-Hypertensive Follow-up Interventions: Referral to alternative/primary care provider.
[2017-12-28 21:11] LABS: BASO % 0.6 % (0-6); EOS % 3.1 % (0-6); GRAN % 74.9 % (47-80); HEMATOCRIT 41.1 % (42.0-52.0); HEMOGLOBIN 13.6 gm/dl (14.0-18.0); LYMPH % 12.7 % (16-45); MEAN CELL VOLUME 87.4 fl (81-97); MEAN CORPUSCULAR HEMOGLOBIN 28.9 pg (27-33); MEAN CORPUSCULAR HGB CONC 33.1 g/dl (32-36); MEAN PLATELET VOLUME 10.7 fl (7.4-10.4); MONO % 8.7 % (0-9); PLATELET COUNT 254 K/uL (130-400)
[2017-12-28 21:24] LABS: BLOOD UREA NITROGEN 30 mg/dL (8-23); EST GLOMERULAR FILTRATION RATE > 60 mL/min; TOTAL PROTEIN 7.2 g/dL (6.6-8.7)
[2017-12-28 21:26] LABS: GLUCOSE,RANDOM 252 mg/dL (74-109)
[2017-12-28 21:29] LABS: ALB/GLOB RATIO 1.1 (1.1-1.8); ALBUMIN 3.8 g/dL (4.0-5.0); ALKALINE PHOSPHATASE 87 U/L (40-129); ALT/SGPT 38 U/L (<41); AST/SGOT 44 U/L (10.0-50.0)
[2017-12-28 21:40] LABS: ERYTHROCYTE SEDIMENTATION RATE 73 mm/hr (0-20)
== END 2017-12-28 21:58 | disposition home or self-care (01) ==
LOC: ER 20:19
DX: S61.532A Puncture wound without foreign body of left wrist, initial encounter (principal); L03.114 Cellulitis of left upper limb; W55.01XA Bitten by cat, initial encounter; Y92.009 Unspecified place in unspecified non-institutional (private) residence as the place of occurrence of the external cause
CPT/HCPCS: 99282 ×2; 96365; 85025; 85651; 86140; 80053; J0295

== ENCOUNTER 2017-12-29 18:01 | Emergency (ER) | payer MEDICARE ==
--- NOTE | 2017-12-29 18:23 | Emergency Department Record ---
History of Present Illness - General Stated Complaint: RECHECK LT ARM Time Seen by Provider: 12/29/17 18:22 Source: Patient Mode of arrival: Ambulatory Limitations: No limitations - History of Present Illness Initial Comments: 77 yo male returns to ED for re-evaluation of an infection to the left forearm following a cat bite to the left wrist distally 3 days ago. Patient reports that the redness continues to improve following his ED visit last night. Patient denies fevers, chills, or worsening swelling over night. MD Complaint: Wound re-check Onset/Timin -: Days(s) Initial Visit For: Animal bite Returns Today for: Wound recheck Symptoms Since Prior Visit: Improved Associated Symptoms: None - Related Data Previous Rx's Medication Instructions Recorded Amoxicillin/Potassium Clav 1 tab PO BID #20 tab 12/26/17 [Augmentin 875-125 Tablet] Allergies Allergy/AdvReac Type Severity Reaction Status Date / Time "Most blood pressure AdvReac Hypertensio Uncoded 03/03/17 23:17 medications" n Review of Systems Constitutional: Denies: Chills, Fever, Malaise, Night sweats Eyes: Denies: Eye discharge, Eye pain ENT: Denies: Congestion, Ear pain, Epistaxis Respiratory: Denies: Cough, Dyspnea Cardiovascular: Denies: Chest pain, Dyspnea on exertion Endocrine: Denies: Fatigue, Heat or cold intolerance Gastrointestinal: Denies: Abdominal pain, Nausea, Vomiting Genitourinary: Denies: Incontinence, Retention Musculoskeletal: Denies: Arthralgia, Back pain Skin: Reports: Change in color (redness to the left forearm proximal to healing wounds at the left volar left wrist). Denies: Bruising Neurological: Denies: Abnormal gait, Confusion, Headache, Tingling Psychiatric: Denies: Anxiety Hematological/Lymphatic: Denies: Anemia, Blood Clots Past Medical History - SOCIAL HISTORY Smoking Status: Never smoker - RESPIRATORY Hx Respiratory Disorders: Yes Hx Asthma: Yes - CARDIOVASCULAR Hx Cardio Disorders: Yes Hx Abnormal EKG: No Hx Hypertension: Yes - NEURO Hx Neuro Disorders: No - GI Hx GI Disorders: No - Hx Genitourinary Disorders: No - ENDOCRINE Hx Endocrine Disorders: No - MUSCULOSKELETAL Hx Musculoskeletal Disorders: No - PSYCH Hx Psych Problems: Yes Hx Anxiety: Yes - HEMATOLOGY/ONCOLOGY Hx Hematology/Oncology Disorders: No Family Medical History Hx Diabetes: Mother Hx Heart Disease: Father Hx HTN: Father Hx Stroke: Mother *Stroke Comment: from stroke Physical Exam - General General Appearance: Alert, Oriented x3, Cooperative, No acute distress Limitations: No limitations - Head Head exam: Atraumatic, Normocephalic, Normal inspection Head exam detail: negative: Abrasion, Contusion, Singh's sign, General tenderness, Hematoma, Laceration - Eye Eye exam: Normal appearance. negative: Conjunctival injection, Periorbital swelling, Periorbital tenderness, Scleral icterus - ENT Ear exam: negative: Auricular hematoma, Auricular trauma Nasal Exam: negative: Active bleeding, Discharge, Dried blood, Foreign body Mouth exam: negative: Drooling, Laceration, Muffled voice, Tongue elevation - Neck Neck exam: Normal inspection. negative: Meningismus, Tenderness - Respiratory Respiratory exam: Normal lung sounds bilaterally. negative: Respiratory distress, Rhonchi, Stridor, Wheezes - Cardiovascular Cardiovascular Exam: Regular rate, Normal rhythm, Normal heart sounds Peripheral Pulses: 3+: Radial (L) - GI/Abdominal GI/Abdominal exam: Soft. negative: Rebound, Rigid, Tenderness - Rectal Rectal exam: Deferred - exam: Deferred - Extremities Extremities exam: Other (Significant improvement in the patient's left forearm erythema, no induration or fluctuance on examination.). negative: Calf tenderness, Pedal edema - Back Back exam: Denies: CVA tenderness (R), CVA tenderness (L) - Neurological Neurological exam: Alert, Normal gait, Oriented X3 - Psychiatric Psychiatric exam: Normal affect - Skin Skin exam: Normal color Course - Reevaluation(s) Reevaluation #1: 12/29/17 18:28 Patient's forearm cellulitis is significantly improved from last night's visit, patient appears stable for discharge at this time with instructions to continue his Augmentin as previously prescribed. Disposition Disposition: Discharge Clinical Impression: Cellulitis of left forearm Cat bite Qualifiers: Encounter type: subsequent encounter Qualified Code(s): W55.01XD - Bitten by cat, subsequent encounter Disposition: Home, Self-Care Condition: (2) Stable Instructions: Cellulitis (ED) Additional Instructions: Return to ED if your symptoms worsen or if you have any concerns. Continue Augmentin as directed.' Follow-up with your family doctor in 1-3 days as directed. Forms: Patient Portal Access Time of Disposition: 18:23 Quality - Quality Measures Quality Measures: N/A - Blood Pressure Screening Does Patient Have Any of the Following: No Blood Pressure Classification: Normal BP Reading Systolic Measurement: 115 Diastolic Measurement: 67 Screening for High Blood Pressure: < Normal BP, F/U Not Required > [G8783]
== END 2017-12-29 18:45 | disposition home or self-care (01) ==
LOC: ER 18:01
DX: S61.532A Puncture wound without foreign body of left wrist, initial encounter (principal); L03.114 Cellulitis of left upper limb; W55.01XA Bitten by cat, initial encounter; I10 Essential (primary) hypertension; Y92.009 Unspecified place in unspecified non-institutional (private) residence as the place of occurrence of the external cause
CPT/HCPCS: 99282